=== PATIENT | female | born 1990 | race Caucasian/White ===

== ENCOUNTER 2022-08-19 02:38 | Inpatient (IN) | payer OTHER ==
[2022-08-19] MEDS ORDERED: PENICILLIN G POTASSIUM 5,000,000 UNIT in DEXTROSE 5% IN WATER 100 ML IVPB STA ×2 (03:08)
[2022-08-19] MEDS ORDERED: TERBUTALINE 1 MG/ML VIAL SQ PRN (03:08)
[2022-08-19] MEDS ORDERED: LIDOCAINE 0.5% (PF) 5 MG/ML (50 ML SDV) SQ PRN (03:08)
[2022-08-19] MEDS: LACTATED RINGERS 1,000 ML IV SCH ×2 (03:48→23:57)
[2022-08-19 04:07] LABS: Basophils % (A) 0 %; Eosinophils # (A) 0.1 k/uL (0-0.7); Eosinophils % (A) 0 %; HCT 34.2 % (34.0-46.0); HGB 11.3 gm/dL (11.4-16.0); Hypochromasia Moderate; Lymphocytes # (A) 1.8 k/uL (1.0-4.8); Lymphocytes % (A) 9 %; MCH 28.3 pg (25.0-35.0); MCV 85.7 fL (80.0-100.0); Mean Platelet Volume 9.9; Monocytes # (A) 2.6 k/uL (0-1.0); Monocytes % (A) 13 %; Neutrophils % (A) 76 %; Platelet Count 392 k/uL (150-450); Poikilocytosis Slight; RBC 3.99 m/uL (3.80-5.40); RDW 14.1 % (11.5-15.5); WBC 19.6 k/uL (3.8-10.6)
[2022-08-19 04:18] LABS: Amphetamine Screen,Urine Detected (NotDetected); Barbiturate Screen,Urine Not Detected (NotDetected); Benzodiazepines Screen,Urine Not Detected (NotDetected); Cocaine Screen,Urine Not Detected (NotDetected); Methadone Screen, Urine Not Detected (NotDetected); Opiate Screen,Urine Detected (NotDetected); Oxycodone Screen, Urine Not Detected (NotDetected); Phencyclidine Screen,Urine Not Detected (NotDetected); Tricyclic Antidepressant,Urine Not Detected (NotDetected); Urn Cannabinoid Scrn Not Detected (NotDetected)
[2022-08-19] MEDS ORDERED: ROPIVACAINE 5 MG/ML 20 ML AMPULE ONE (04:44)
[2022-08-19] MEDS ORDERED: fentaNYL (PF) 50 MCG/ML 5 ML AMP ONE ×2 (04:44→08:00)
[2022-08-19] MEDS ORDERED: SODIUM CHLORIDE 0.9% 100 ML BAG ONE (04:44)
[2022-08-19 05:20] LABS: Glucose,Whole Blood 119 mg/dL (70-110)
[2022-08-19] MEDS ORDERED: PENICILLIN G POTASSIUM 2,500,000 UNIT in DEXTROSE 5% IN WATER 100 ML IVPB SCH ×2 (08:00)
[2022-08-19] MEDS ORDERED: SODIUM CHLORIDE 0.9% 100 ML BAG IV ONE (08:00)
[2022-08-19] MEDS ORDERED: OXYTOCIN 30 UNITS/500 ML NS 30 UNIT in SALINE 1 500ML.BAG IV SCH (08:45)
[2022-08-19 08:54] LABS: Appearance,Urine Cloudy (Clear); Bacteria,Urine Rare /hpf; Bilirubin,Urine Negative (Negative); Blood,Urine Negative (Negative); Color,Urine Yellow; Glucose,Urine (UA) Trace (Negative); Ketones,Urine 4+ (Negative); Leukocyte Esterase,Urine Large (Negative); Mucus,Urine Few /hpf; Nitrite,Urine Negative (Negative); PH, Urine 6.5 (5.0-8.0); Protein,Urine 2+ (Negative); RBC,Urine 1 /hpf (0-5); Specific Gravity,Urine 1.031 (1.001-1.035); Squamous Epithelial Cell,Urine 9 /hpf (0-4); Urobilinogen,Urine <2.0 mg/dL (<2.0); WBC,Urine 8 /hpf (0-5)
[2022-08-19 09:05] LABS: Creatinine,Urine Random 290.1 mg/dL; Protein/Creatinine Ratio,Urine 0.103
--- NOTE | 2022-08-19 09:32 | P.HPOB ---
History of Present Illness H&P Date: 08/19/22 Chief Complaint: Contractions 1 week This is a 32-year-old 3 para 1999 woman with a stated due date of 09/05/2022 based on 7 week ultrasound. She presents to our labor and delivery triage complaining of worsening regular painful contractions and a history of painful contractions over the past 1 week. She had been recently discharged from [facility] labor and delivery triage 4 hours prior not in labor. She reports she was given morphine and or Stadol to help with her pain but her cervix remained unchanged therefore she was not admitted. She presents here compla ining of worsening contractions. She states she was 3 cm dilated on on her recent evaluation. RN evaluation in our labor and delivery triage reports patient is 5 cm dilated and actively saroj, she was therefore admitted The patient has received the majority of her care in [facility]. She does report over the last 1 week that she has been seen at multiple hospitals including [facility], [facility], [facility] and [facility]. At each of the encounters she has been evaluated for labor and discharged home. She states she's had severe upper abdominal pain, nausea and vomiting and was evaluated for kidney stones, gallbladder bladder issues, preeclampsia and hellp syndrome. She reports all evaluation was negative. She was last seen with her regular physician on 08/15/2022 at 37 weeks. She reports a history of diet-controlled gestational diabetes. She has been checking her home blood sugars which she reports remain all within the normal recommended range with fasting blood sugars less than 100 and postprandial blood sugars less than 120. record is obtained and reviewed. Obstetric history is significant for normal spontaneous vaginal delivery in 2020 at 39 weeks. 9 pound male infant. She reports she was induced. In 2016 she had a 36-3/7 weeks delivery of a 6 pound female after possible PPROM and induction of labor. She has taken Adderall 60 mg consistently throughout the . Laboratory data: Blood type A+, antibody screen negative, rubella immune, VDRL nonreactive, hepatitis B surface antigen negative, HIV negative, gonorrhea and clinic cultures negative, glucose tolerance testing 1 hour 200, 3 hour abnormal. Group B strep on 08/15/2022 is negative. Review of Systems Constitutional: Reports as per HPI Past Medical History Past Medical History: No Reported History Additional Past Medical History / Comment(s): ADHD History of Any Multi-Drug Resistant Organisms: None Reported Past Surgical History: No Surgical Hx Reported Past Anesthesia/Blood Transfusion Reactions: No Reported Reaction Past Psychological History: No Psychological Hx Reported Smoking Status: Never smoker Past Alcohol Use History: None Reported Past Drug Use History: None Reported Medications and Allergies Home Medications Medication Instructions Recorded Confirmed Type Dextroamphetamine/Amphetamine 20 mg PO TID 08/19/22 08/19/22 History [Adderall] Allergies Allergy/AdvReac Type Severity Reaction Status Date / Time No Known Allergies Allergy Verified 08/19/22 03:07 Exam Vital Signs Temp Pulse Pulse Resp BP Pulse Ox 08/19/22 03:28 97.8 F 110 H 16 140/76 99 08/19/22 03:06 98.0 F 103 H 16 133/91 Intake and Output 08/18/22 08/19/22 08/19/22 22:59 06:59 14:59 Other: Weight 111.13 kg Upon my initial evaluation the patient is resting comfortably with an epidural anesthetic in place. HEENT exam is unremarkable. Her breathing is unlabored. The abdomen is gravid and nontender with no visible scars. Estimated weight by Kuldip's approximately 9 pounds. She is 1+ bilateral lower extremity edema. On pelvic examination the cervix is multiparous and a 3 cm dilated, 30% effaced and the presenting part is not engaged in the pelvis. This is incons istent with RN reports on admission from triage. Bedside ultrasound confirms vertex presentation. heart tones are category 2. She had 2 episodes of bradycardia related to hypotension secondary to epidural placement that did resolve with ephedrine, position changes and IV fluid rehab hydration. On tocometer she is saroj very irregularly every 9-12 minutes. Results Result Diagrams: 08/19/22 03:25 Abnormal Lab Results - Last 24 Hours (Table) 08/19/22 08/19/22 08/19/22 Range/Units 03:25 03:25 03:25 WBC 19.6 H (3.8-10.6) k/uL Hgb 11.3 L (11.4-16.0) gm/dL Neutrophils # 15.0 H (1.3-7.7) k/uL Monocytes # 2.6 H (0-1.0) k/uL POC Glucose (mg/dL) (70-110) mg/dL Urine Appearance Cloudy H (Clear) Urine Protein 2+ H (Negative) Urine Glucose (UA) Trace H (Negative) Urine Ketones 4+ H (Negative) Ur Leukocyte Esterase Large H (Negative) Urine WBC 8 H (0-5) /hpf Ur Squamous Epith Cells 9 H (0-4) /hpf Urine Bacteria Rare H (None) /hpf Urine Mucus Few H (None) /hpf Urine Opiates Screen Detected H (NotDetected) Ur Amphetamines Screen Detected H (NotDetected) 08/19/22 Range/Units 05:17 WBC (3.8-10.6) k/uL Hgb (11.4-16.0) gm/dL Neutrophils # (1.3-7.7) k/uL Monocytes # (0-1.0) k/uL POC Glucose (mg/dL) 119 H (70-110) mg/dL Urine Appearance (Clear) Urine Protein (Negative) Urine Glucose (UA) (Negative) Urine Ketones (Negative) Ur Leukocyte Esterase (Negative) Urine WBC (0-5) /hpf Ur Squamous Epith Cells (0-4) /hpf Urine Bacteria (None) /hpf Urine Mucus (None) /hpf Urine Opiates Screen (NotDetected) Ur Amphetamines Screen (NotDetected) Assessment and Plan (1) H/O prolonged latent phase of labor, currently Current Visit: Yes Status: Acute Code(s): O09.299 - SUPRVSN OF PREG W POOR REPRODCTV OR OBSTET HISTORY, UNSP TRI SNOMED Code(s): 633078696 (2) Gestational diabetes Current Visit: Yes Status: Acute Code(s): O24.419 - GESTATIONAL DIABETES MELLITUS IN , UNSP CONTROL SNOMED Code(s): 37118276 (3) Drug exposure, gestational Current Visit: Yes Status: Acute Code(s): P04.9 - AFFECTED BY MATERNAL NOXIOUS SUBSTANCE, UNSPECIFIED SNOMED Code(s): 074218186 Plan: This is a 32 year old 3 para 2001 woman who presents to our facility with reports of prolonged latent labor over the last 1 week. She was admitted with reported cervical change from 3 cm dilated at an outlying facility to 5 cm dilating at our facility. Following admission she did receive an epidural anesthetic for pain relief. On my current examination the patient is unfortun ately 3 cm dilated only 40% effaced with an unengaged vertex. She was not in active labor. At this time are plan is for an induction of labor with Pitocin and artificial rupture of membranes when possible. She did have some bradycardia following the hypotensive episodes with epidural placement. status currently category 2. Blood sugars 119 on admission here. There is a history of consistent Adderall use throughout the and her urine tox screen is positive for amphetamines. It is also positive for opioids consistent with having received morphine recently admitted [facility]. The airborne and air delivery specialist is aware of the amphetamine exposure. She is group B strep negati ve and Rh+. I'm suspicious for large for gestational age and she has a history of a previous 9 pound vaginal delivery 18 months ago. The above findings reviewed with the patient and her including the discrepancy in labor assessment and plan for Pitocin induction of labor with artificial rupture of membranes when possible. They are pleased with this plan. Time with Patient: Greater than 30
[2022-08-19 09:50] LABS: Glucose,Whole Blood 99 mg/dL (70-110)
[2022-08-19 10:11] LABS: ALT 16 U/L (4-34); AST 16 U/L (14-36); African American GFR (CKD) >90 (>60 ml/min/1.73 sqM); Blood Urea Nitrogen 10 mg/dL (7-17); LDH 344 U/L (313-618); Non-African American GFR(CKD) >90 (>60 ml/min/1.73 sqM); Uric Acid 6.1 mg/dL (3.7-7.4)
[2022-08-19] MEDS ORDERED: CITRIC ACID-SODIUM CITRATE 15 ML CUP PO ONE (11:40)
[2022-08-19 14:01] LABS: Glucose,Whole Blood 80 mg/dL (70-110)
[2022-08-19] MEDS ORDERED: diphenhydrAMINE 50 MG/ML 1 ML VIAL IVP PRN ×2 (16:06)
[2022-08-19] MEDS ORDERED: ZOLPIDEM 5 MG TAB PO PRN (16:06)
[2022-08-19] MEDS ORDERED: LANOLIN CREAM 5 GM TUBE TOPICAL PRN (16:06)
[2022-08-19] MEDS ORDERED: diphenhydrAMINE 50 MG CAP PO PRN (16:06)
[2022-08-19] MEDS ORDERED: BENZOCAINE/MENTHOL SPRAY 1 GM/SPRAY AEROSOL TOPICAL PRN (16:06)
[2022-08-19] MEDS ORDERED: SIMETHICONE 80 MG CHEWABLE PO PRN (16:06)
[2022-08-19] MEDS ORDERED: HYDROCORTISONE 2.5% RECTAL CREAM 30 GM TUBE RECTAL PRN (16:06)
[2022-08-19] MEDS ORDERED: diphenhydrAMINE 25 MG CAP PO PRN (16:06)
--- NOTE | 2022-08-19 16:06 | P.PROBDLV ---
Vaginal Delivery Note - . Vaginal Delivery Note: Findings: Female in the left occiput anterior position with Apgars of 8 at 1 minute and 9 at 5 minutes weighing 8 lbs. 5 oz., 3790 g. Intact, three- vessel cord placenta. True knot in the umbilical cord. EBL 100 mL's. Delivery summary: This is a 32-year-old 3 para 2 woman who presented at 38-3/7 weeks gestation complaining of contractions. She been seen and had care at an outlying facility. She did recently been discharged home on not in labor from another facility. She presented complaining of a one-week history of worsening uterine contractions. She was felt to be actively saroj and 5 cm dilated therefore was admitted. She received an epidural anesthetic. She received group B strep prophylactic antibiotics. We did track down her record which was reviewed and her group B strep was found to be negative she was therefore discontinued of antibiotics. Following placement of the epidural she had minimal contraction activity and her cervix was noted to be thick and the vertex is not well applied. Bedside ultrasound confirmed vertex presentation. Pitocin induction of labor then was undertaken. She did progress eventually to 5 cm dilated and 80% effaced and was complaining of pelvic pressure. At approximately 1500 she underwent artificial rupture of membranes at which time she was 6 m dilated and 100% effaced. Copious clear fluid was noted. She reached complete cervical dilation by 1549 with strong urge to push. She was repositioned, prepped and draped and with maternal effort 1 the head did deliver from the left occiput anterior position. The patient was placed in the Cindi position for delivery of the anterior shoulder. The rest the was then delivered without difficulty. The nose and mouth were bulb suctioned the was placed on the maternal abdomen. Cord was clipped and cut. Apgars were 8 at 1 minute and 9 at 5 minutes. An intact, three-vessel cord placenta was delivered after less than 5 minute third stage of labor. She received Pitocin following the third stage of labor. The vagina and cervix and perineum were inspected and no lacerations were noted. Inspection of the placenta and umbilical cord revealed a true knot in the umbilical cord. EBL was approximately 100 mL's both mother and were doing well post delivery in the room.
[2022-08-19] MEDS: IBUPROFEN 600 MG TAB PO PRN ×2 (18:22→23:59)
[2022-08-19] MEDS: ACETAMINOPHEN TAB 325 MG TAB PO PRN (19:27)
[2022-08-19] MEDS: SENNOSIDES-DOCUSATE SODIUM 1 EACH TAB PO SCH (19:28)
[2022-08-19 21:16] LABS: Basophils % (A) 0 %; Eosinophils % (A) 0 %; HCT 33.9 % (34.0-46.0); HGB 10.9 gm/dL (11.4-16.0); Hypochromasia Slight; Lymphocytes # (A) 1.7 k/uL (1.0-4.8); Lymphocytes % (A) 9 %; MCH 27.9 pg (25.0-35.0); MCHC 32.1 g/dL (31.0-37.0); Mean Platelet Volume 10.2; Monocytes # (A) 1.2 k/uL (0-1.0); Monocytes % (A) 6 %; Neutrophils # (A) 15.8 k/uL (1.3-7.7); Neutrophils % (A) 83 %; Platelet Count 344 k/uL (150-450); Poikilocytosis Slight; RBC 3.89 m/uL (3.80-5.40); RDW 14.5 % (11.5-15.5)
[2022-08-19 21:28] LABS: ALT 16 U/L (4-34); AST 22 U/L (14-36); African American GFR (CKD) >90 (>60 ml/min/1.73 sqM); Alkaline Phosphatase 223 U/L (38-126); Amylase 74 U/L (30-110); Anion Gap 4 mmol/L; Blood Urea Nitrogen 9 mg/dL (7-17); Calcium 8.5 mg/dL (8.4-10.2); Carbon Dioxide 23 mmol/L (22-30); Chloride 105 mmol/L (98-107); Glucose 103 mg/dL (74-99); LDH 541 U/L (313-618); Lipase 133 U/L (23-300); Non-African American GFR(CKD) >90 (>60 ml/min/1.73 sqM); Potassium 4.4 mmol/L (3.5-5.1); Sodium 132 mmol/L (137-145); Total Bilirubin 0.3 mg/dL (0.2-1.3); Total Protein 6.1 g/dL (6.3-8.2)
[2022-08-19] MEDS ORDERED: FAMOTIDINE 20 MG TAB PO PRN (21:56)
[2022-08-19] MEDS ORDERED: FAMOTIDINE 20 MG/2 ML VIAL IV PRN (21:57)
[2022-08-19 23:02] LABS: Creatinine,Urine Random 197.3 mg/dL; Protein/Creatinine Ratio,Urine 0.172
[2022-08-20] MEDS: ACETAMINOPHEN TAB 325 MG TAB PO PRN ×2 (03:27→23:56)
[2022-08-20] MEDS: LACTATED RINGERS 1,000 ML IV SCH (05:25)
[2022-08-20] MEDS: IBUPROFEN 600 MG TAB PO PRN ×3 (06:13→19:21)
[2022-08-20 07:33] LABS: Basophils # (A) 0.1 k/uL (0-0.2); Basophils % (A) 1 %; Eosinophils # (A) 0.1 k/uL (0-0.7); Eosinophils % (A) 1 %; HCT 29.2 % (34.0-46.0); HGB 9.7 gm/dL (11.4-16.0); Hypochromasia Slight; Lymphocytes # (A) 2.4 k/uL (1.0-4.8); Lymphocytes % (A) 16 %; MCH 28.2 pg (25.0-35.0); MCHC 33.2 g/dL (31.0-37.0); MCV 84.9 fL (80.0-100.0); Mean Platelet Volume 9.4; Monocytes % (A) 7 %; Neutrophils # (A) 10.8 k/uL (1.3-7.7); Neutrophils % (A) 75 %; Platelet Count 350 k/uL (150-450); Poikilocytosis Slight; RBC 3.44 m/uL (3.80-5.40); RDW 14.5 % (11.5-15.5); WBC 14.4 k/uL (3.8-10.6)
[2022-08-20] MEDS: SENNOSIDES-DOCUSATE SODIUM 1 EACH TAB PO SCH ×2 (10:01→23:56)
--- NOTE | 2022-08-20 10:40 | P.PNOBGVD ---
Subjective - Subjective Interval history: Episode of severe left upper quadrant pain yesterday evening with nausea and vomiting. This resolved with IV Pepcid. Laboratory evaluation at that time was all entirely normal. She reports her nausea has resolved this morning and she is able to eat breakfast. Patient reports: Reports appetite normal, Reports voiding normally, Reports pain well controlled, Reports ambulating normally : doing well (In special care nursery for withdrawal protocol due to maternal Adderall use) Objective - Latest Vital Signs Latest vital signs: Vital Signs Temp Pulse Pulse Resp BP Pulse Ox 08/20/22 09:00 98.1 F 77 16 150/93 08/20/22 04:00 77 15 136/82 97 08/20/22 00:00 98.1 F 82 16 139/86 97 08/19/22 20:00 68 16 131/81 98 08/19/22 18:00 80 16 138/87 08/19/22 17:30 79 16 140/95 08/19/22 17:00 80 15 130/82 08/19/22 16:45 82 16 135/85 08/19/22 16:30 85 16 134/78 08/19/22 16:15 87 15 133/76 08/19/22 16:00 97.9 F 102 H 16 142/79 Intake and Output 08/19/22 08/20/22 08/20/22 22:59 06:59 14:59 Intake Total 845.333 240 Output Total 600 Balance 245.333 240 Intake: Intake, IV Titration 125.333 Amount Oxytocin 30 Units/500 ml 125.333 Ns 30 unit In Saline 1 500ml.bag @ Per Protocol IV .Q0M [facility] Rx#:[id number] Oral 720 240 Output: Urine 250 Estimated Blood Loss 200 Output, Quantitative 150 Blood Loss Other: Voiding Method Toilet Toilet # Voids 1 1 - Exam Extremities: Present: normal, edema. Absent: tenderness Abdomen: Present: normal appearance, soft. Absent: distention, tenderness Uterus: Present: normal, firm. Absent: tenderness - Labs Labs: Abnormal Lab Results - Last 24 Hours (Table) 08/19/22 08/19/22 08/20/22 Range/Units 21:03 21:03 07:09 WBC 19.0 H 14.4 H (3.8-10.6) k/uL RBC 3.44 L (3.80-5.40) m/uL Hgb 10.9 L 9.7 L (11.4-16.0) gm/dL Hct 33.9 L 29.2 L (34.0-46.0) % Neutrophils # 15.8 H 10.8 H (1.3-7.7) k/uL Monocytes # 1.2 H (0-1.0) k/uL Sodium 132 L (137-145) mmol/L Glucose 103 H (74-99) mg/dL Alkaline Phosphatase 223 H (38-126) U/L Total Protein 6.1 L (6.3-8.2) g/dL Albumin 3.0 L (3.5-5.0) g/dL Assessment and Plan (1) H/O prolonged latent phase of labor, currently Current Visit: Yes Status: Acute Code(s): O09.299 - SUPRVSN OF PREG W POOR REPRODCTV OR OBSTET HISTORY, UNSP TRI SNOMED Code(s): 067267166 (2) Gestational diabetes Current Visit: Yes Status: Acute Code(s): O24.419 - GESTATIONAL DIABETES MELLITUS IN , UNSP CONTROL SNOMED Code(s): 97578154 (3) Drug exposure, gestational Current Visit: Yes Status: Acute Code(s): P04.9 - AFFECTED BY MATERNAL NOXIOUS SUBSTANCE, UNSPECIFIED SNOMED Code(s): 451593399 (4) Normal spontaneous vaginal delivery Current Visit: Yes Status: Acute Code(s): O80 - ENCOUNTER FOR FULL-TERM UNCOMPLICATED DELIVERY SNOMED Code(s): 15985806 Plan: 32-year-old 3 now para 3 woman day #1 status post normal spontaneous vaginal delivery. Episode of left upper quadrant pain, resolved. Slightly elevated blood pressures this morning, we will monitor. Otherwise routine care.
[2022-08-21] MEDS: LACTATED RINGERS 1,000 ML IV SCH (07:19)
[2022-08-21] MEDS: SENNOSIDES-DOCUSATE SODIUM 1 EACH TAB PO SCH (07:44)
[2022-08-21] MEDS: IBUPROFEN 600 MG TAB PO PRN ×2 (07:44→13:09)
[2022-08-21 08:16] VITALS: RESP 16
[2022-08-21 09:31] VITALS: BP 144/87; PULSE 70; TEMP 97.9
[2022-08-21] MEDS: ACETAMINOPHEN TAB 325 MG TAB PO PRN (10:24)
--- NOTE | 2022-08-21 13:19 | P.DS ---
Providers Date of admission: 08/19/22 03:21 Expected date of discharge: 08/21/22 Attending physician: Emily Wolff Primary care physician: Stated None - Discharge Diagnosis(es) (1) H/O prolonged latent phase of labor, currently Current Visit: Yes Status: Acute (2) Gestational diabetes Current Visit: Yes Status: Acute (3) Drug exposure, gestational Current Visit: Yes Status: Acute (4) Normal spontaneous vaginal delivery Current Visit: Yes Status: Acute Hospital Course: This is a 32-year-old 3 now para 3 woman who presented at 38-3/7 weeks gestation with prolonged latent labor. She been seen multiple outlying facilities. Her care had been obtained on . Following admission she underwent a Pitocin induction of labor with artificial rupture of membranes. She went on to have a rapid delivery of a liveborn female over an intact perineum. 's of 9 at 1 minute and 9 at 5 minutes weight 8 lbs. 7 oz. Patient's course was remarkable for episode of severe left upper quadrant pain in the evening of post day 0. This was managed with IV Pepcid. The patient did use Adderall throughout her and the infant was admitted to the special care nursery for withdrawal protocol. On day #1 the patient's pain was resolved and she was ambulating and voiding without difficulty. Her vital signs were stable and her lochia was minimal. By day #2 she continued to do extremely well with scant lochia. 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 Patient Condition at Discharge: Good Plan - Discharge Summary New Discharge Prescriptions: No Action Dextroamphetamine/Amphetamine [Adderall] 20 mg PO TID Discharge Medication List Dextroamphetamine/Amphetamine [Adderall] 20 mg PO TID 08/19/22 [History] Follow up Appointment(s)/Referral(s): Emily Wolff MD [STAFF PHYSICIAN] - 6 Weeks Activity/Diet/Wound Care/Special Instructions: Follow-up in the office in 6 weeks . Call with any concerning signs or symptoms including heavy vaginal bleeding, severe abdominal pain, fever greater than 101, swelling or redness of the lower extremities, foul vaginal discharge, or signs of depression. Nothing in the vagina for 6 weeks after delivery, specifically no intercourse. Discharge Disposition: HOME SELF-CARE
== END 2022-08-21 15:40 | disposition home or self-care (01) | DRG 999 ==
LOC: FBPOP 02:38 → 4FBP 03:21
PROVIDERS: ADMIT Obstetrics & Gynecology; ATTEND Obstetrics & Gynecology
PROC: 3E033VJ Introduction of Other Hormone into Peripheral Vein, Percutaneous Approach (ICD-10-PCS; principal; 2022-08-19)
PROC: 10907ZC Drainage of Amniotic Fluid, Therapeutic from Products of Conception, Via Natural or Artificial Opening (ICD-10-PCS; principal; 2022-08-19)
PROC: 10E0XZZ Delivery of Products of Conception, External Approach (ICD-10-PCS; principal; 2022-08-19)
DX: O24.420 Gestational diabetes mellitus in childbirth, diet controlled (principal); O63.0 Prolonged first stage (of labor); O99.324 Drug use complicating childbirth; Z37.0 Single live birth; I95.89 Other hypotension; T41.3X5A Adverse effect of local anesthetics, initial encounter; O76 Abnormality in fetal heart rate and rhythm complicating labor and delivery; O99.344 Other mental disorders complicating childbirth; F90.9 Attention-deficit hyperactivity disorder, unspecified type; O36.63X0 Maternal care for excessive fetal growth, third trimester, not applicable or unspecified; F15.90 Other stimulant use, unspecified, uncomplicated; O69.2XX0 Labor and delivery complicated by other cord entanglement, with compression, not applicable or unspecified; O66.0 Obstructed labor due to shoulder dystocia; Z79.899 Other long term (current) drug therapy; Z3A.38 38 weeks gestation of pregnancy; Z28.310 Unvaccinated for COVID-19; R10.12 Left upper quadrant pain
CPT/HCPCS: 59025; 80053; 80306; 81001; 82150; 82565; 82570; 83615; 83690; 84112; 84156; 84450; 84460; 84520; 84550; 85025; 86850; 86900; 86901; 99213